=== PATIENT | female | born 1980 | race American Indian/Alaskan Native ===

== ENCOUNTER 2016-11-22 09:00 | Emergency (ER) | payer OTHER ==
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
[2016-11-22] MEDS ORDERED: TYLENOL PO ONE (10:55)
[2016-11-22] MEDS ORDERED: BOOSTRIX IM ONE (11:03)
[2016-11-22] MEDS ORDERED: NACL 0.9% 1000 ML 2,000 ML IV ONE (11:25)
[2016-11-22] MEDS ORDERED: MORPHINE IV PRN (11:25)
--- NOTE | 2016-11-22 13:39 | XRay Report ---
ROUTINE CHEST, TWO VIEWS: HISTORY: Hypertension. The trachea, heart, mediastinal contour, lung arita and bony thorax are unremarkable. IMPRESSION: Unremarkable chest x-ray.
--- NOTE | 2016-11-22 13:39 | XRay Report ---
BILATERAL TIBIA AND FIBULA, 2 VIEWS History: Bilateral leg pain Findings: There is normal bone mineralization. No acute osseous findings or joint pathology. The soft tissues are within normal limits. Impression: Normal exam.
[2016-11-22 14:29] VITALS: BP 130/88
== END 2016-11-22 14:30 | disposition home or self-care (01) ==
LOC: ED 09:00
DX: O9A.211 Injury, poisoning and certain other consequences of external causes complicating pregnancy, first trimester (principal); M54.9 Dorsalgia, unspecified; Z3A.12 12 weeks gestation of pregnancy; V87.7XXA Person injured in collision between other specified motor vehicles (traffic), initial encounter; W22.10XA Striking against or struck by unspecified automobile airbag, initial encounter; Y93.89 Activity, other specified; Y99.9 Unspecified external cause status; Y92.410 Unspecified street and highway as the place of occurrence of the external cause
CPT/HCPCS: 36415; 71020; 73590; 84702; 90471; 90715; 96374; 99284; J2270; J7030